=== PATIENT | male | born 1960 | race Caucasian/White ===

== ENCOUNTER 2018-10-09 09:54 | Inpatient (IN) | payer BC, OTHER ==
[~2018-10-09] VITALS: Ht 175.3 cm; Wt 58.1 kg
[2018-10-09] MEDS ORDERED: ONDANSETRON HCL INJ 2MG/ML 2ML 2 MG/ML VIAL IV PRN (10:15)
[2018-10-09] MEDS ORDERED: MORPHINE SULFATE 2 MG/ML SYR 1ML IV PRN (10:15)
[2018-10-09] MEDS ORDERED: COQ-10100 MG PO (10:17)
[2018-10-09] MEDS ORDERED: OMEPRAZOLE40 MG PO (10:17)
[2018-10-09] MEDS ORDERED: JARDIANCE PO (10:17)
[2018-10-09] MEDS ORDERED: LISINOPRIL10 MG PO (10:17)
[2018-10-09] MEDS ORDERED: JANUMET 50-1,01 EACH PO (10:17)
[2018-10-09] MEDS ORDERED: ZETIA10 MG PO (10:17)
[2018-10-09] MEDS ORDERED: RANITIDINE HCL150 MG PO (10:17)
[2018-10-09] MEDS ORDERED: PRAVASTATIN SOD40 MG PO (10:17)
[2018-10-09] MEDS ORDERED: BACTRIM DS TAB1 EACH PO (10:17)
[2018-10-09] MEDS ORDERED: FENOFIBRATE145 MG PO (10:17)
[2018-10-09] MEDS ORDERED: HYDROCHLOROTHIA25 MG PO (10:17)
[2018-10-09] MEDS ORDERED: METOPROLOL SUCC25 MG PO (10:17)
[2018-10-09] MEDS ORDERED: VASCEPA PO (10:17)
[2018-10-09] MEDS ORDERED: SODIUM CHLORIDE 0.9% 1000ML 1,000 ML IV STA (10:20)
[2018-10-09] MEDS ORDERED: ONDANSETRON HCL INJ 2MG/ML 2ML 2 MG/ML VIAL IV STA (10:20)
[2018-10-09] MEDS ORDERED: VANCOMYCIN 1GM/NS 250 ML 250 ML IV STA (10:20)
[2018-10-09] MEDS ORDERED: MORPHINE SULFATE INJ 4 MG/ML INJ 1ML IV STA (10:20)
[2018-10-09] MEDS ORDERED: PIPER-TAZ 3.375 GM 50 ML IV STA (10:20)
[2018-10-09] MEDS ORDERED: SODIUM CHLORIDE 0.9% 1000ML 1,000 ML ONE (10:24)
[2018-10-09 11:02] LABS: BASOPHILS % 0.4 % (0.0-1.0); EOSINOPHILS # (AUTO) 0.1 (0.0-0.4); EOSINOPHILS % 1.5 % (0.0-6.0); HEMATOCRIT 36.9 % (38.2-49.6); LYMPHOCYTES # (AUTO) 1.7 (1.0-3.2); LYMPHOCYTES % 22.4 % (18.0-39.1); MEAN CORPUSCULAR HEMOGLOBIN 26.9 pg (28-32); MEAN CORPUSCULAR HGB CONC 32.5 g/dL (31-35); MEAN CORPUSCULAR VOLUME 82.7 fL (81-99); MONOCYTES # (AUTO) 0.8 (0.2-0.8); MONOCYTES % 10.4 % (4.4-11.3); NEUTROPHILS # (AUTO) 4.9 (2.1-6.9); NEUTROPHILS % 65.2 % (38.7-80.0); PLATELET COUNT 274 x10e3/uL (140-360); RED BLOOD COUNT 4.46 x10e6/uL (4.3-5.7); RED CELL DISTRIBUTION WIDTH 13.7 % (11.7-14.4)
[2018-10-09 11:12] LABS: CLARITY,URINE HAZY (CLEAR); COLOR,URINE YELLOW (YELLOW)
[2018-10-09 11:13] LABS: ANION GAP 16.2 mmol/L (8-16); CALCIUM 9.7 mg/dL (8.4-10.2); CREATININE, SERUM 1.59 mg/dL (0.72-1.25); POTASSIUM 4.2 mmol/L (3.5-5.1)
[2018-10-09 11:13] LABS: BILIRUBIN,URINE NEGATIVE (NEGATIVE); KETONES,URINE NEGATIVE (NEGATIVE); LEUKOCYTE ESTERASE ,URINE NEGATIVE (NEGATIVE); NITRITE,URINE NEGATIVE (NEGATIVE); PROTEIN,URINE DIPSTICK NEGATIVE (NEGATIVE); URINE UROBILINOGEN 0.2 mg/dL (0.2 - 1)
[2018-10-09 11:27] LABS: EPITHELIAL CELLS,URINE RARE /LPF
[2018-10-09] MEDS ORDERED: PIPER-TAZ 3.375 GM 50 ML IV SCH (12:00)
--- NOTE | 2018-10-09 12:55 | NUR ---
Recvd patient via wheelchair from ER, AAOx3, Assisted him to bed, call light in reach, no resp distress, denies any pain or SOB, LEFT FACE IS SWOLLEN AND RED. Keep monitoring
[2018-10-09 13:10] VITALS: BP 137/84
[2018-10-09 13:11] VITALS: BP 110/54
[2018-10-09] MEDS ORDERED: CEFEPIME HCL 2 GM VIAL IV SCH (14:00)
[2018-10-09] MEDS: MORPHINE SULFATE INJ 4 MG/ML INJ 1ML IV PRN ×2 (14:20→20:08)
[2018-10-09] MEDS: SODIUM CHLORIDE 0.9% 1000ML 1,000 ML IV SCH ×2 (14:32→20:08)
[2018-10-09] MEDS: CEFEPIME 2 GM/NS 0.9% 100 ML 100 ML IV SCH ×2 (15:02→22:45)
[2018-10-09 15:42] VITALS: BP 136/69
--- NOTE | 2018-10-09 18:05 | NUR ---
patient up in bed, assisted him to restroom ,no distress noted
[2018-10-09 19:00] VITALS: BP 128/61
--- NOTE | 2018-10-09 20:08 | NUR ---
Patient complained of headache and facial pain. Morphine sulfate was administered as ordered, will reassess for pain. call light was within easy reach, instructed to call for assistance as needed.
[2018-10-09 20:19] VITALS: BP 128/61
[2018-10-09] MEDS: VANCOMYCIN 1GM/NS 250 ML 250 ML IV SCH (21:25)
[2018-10-10] VITALS (8 sets, daily range): BP systolic 101–171; BP diastolic 52–73
--- NOTE | 2018-10-10 00:30 | NUR ---
Patient resting comfortable in bed, no respiratory distress observed. Denies pain at this time, call light within easy reach, instructed to call for assistance.
[2018-10-10 05:24] LABS: BASOPHILS % 0.1 % (0.0-1.0); EOSINOPHILS # (AUTO) 0.1 (0.0-0.4); EOSINOPHILS % 0.9 % (0.0-6.0); HEMATOCRIT 36.3 % (38.2-49.6); HEMOGLOBIN 11.8 g/dL (14.0-18.0); LYMPHOCYTES # (AUTO) 1.8 (1.0-3.2); LYMPHOCYTES % 21.2 % (18.0-39.1); MEAN CORPUSCULAR HGB CONC 32.5 g/dL (31-35); MEAN CORPUSCULAR VOLUME 83.1 fL (81-99); MONOCYTES # (AUTO) 0.8 (0.2-0.8); MONOCYTES % 9.2 % (4.4-11.3); NEUTROPHILS # (AUTO) 5.9 (2.1-6.9); NEUTROPHILS % 68.4 % (38.7-80.0); PLATELET COUNT 276 x10e3/uL (140-360); RED BLOOD COUNT 4.37 x10e6/uL (4.3-5.7); RED CELL DISTRIBUTION WIDTH 13.7 % (11.7-14.4)
[2018-10-10] MEDS: CEFEPIME 2 GM/NS 0.9% 100 ML 100 ML IV SCH ×3 (05:46→22:21)
[2018-10-10] MEDS: SODIUM CHLORIDE 0.9% 1000ML 1,000 ML IV SCH ×3 (05:51→18:15)
--- NOTE | 2018-10-10 05:51 | NUR ---
Patient complained of pain but said he did not want pain medication at this time. Patient was notified to call the nurse when he wanted pain medication
[2018-10-10] MEDS: MORPHINE SULFATE INJ 4 MG/ML INJ 1ML IV PRN ×3 (07:00→17:57)
--- NOTE | 2018-10-10 07:20 | NUR ---
patient resting in bed, denies any SOB, Pain 5/10 on left face, already medicated with pain medicine, call light in reach, no distress noted
[2018-10-10 08:31] LABS: CALCIUM 9.2 mg/dL (8.4-10.2); CREATININE, SERUM 1.33 mg/dL (0.72-1.25)
[2018-10-10] MEDS: VANCOMYCIN 1GM/NS 250 ML 250 ML IV SCH ×2 (08:42→20:40)
[2018-10-10 08:52] LABS: FREE T4 (FREE THYROXINE) 0.99 ng/dL (0.9-1.8); THYROID STIMULATING HORMONE 0.547 uIU/mL (0.350-4.940)
[2018-10-10] MEDS ORDERED: FAMOTIDINE 20 MG TAB PO SCH (09:00)
[2018-10-10] MEDS: JARDIANCE 10 MG PO SCH (09:00)
--- NOTE | 2018-10-10 12:14 | Diagnostic Imaging Report ---
Ultrasound of left face History:Pain, swelling, redness for 2 weeks Comparison: CT face performed at 1142 hours Findings: Subcutaneous fluid collection containing isoechoic debris collection in the superior aspect of the left cheek in the area of swelling abutting a facial muscle. This measures 2.2 x 2.2 x 1.7 cm (AP, transverse, craniocaudal). There is surrounding cellulitis. No increased vascularity on color Doppler interrogation. No evidence of foreign body. IMPRESSION: Left facial abscess as described above. Thank you for your referral. Signed by: Dr. Pam Mary MD on 10/10/2018 12:11 PM
--- NOTE | 2018-10-10 12:17 | Diagnostic Imaging Report ---
EXAMINATION: CT of the face HISTORY: Left facial masses/cellulitis for last week. Hypertension, diabetes, hyperlipidemia COMPARISON: None available TECHNIQUE: Multidetector helical axial images were acquired through the face with contrast and were reconstructed in bone and soft tissue algorithms. Images were viewed in multiplanar format. Intravenous Contrast: 100 ml Isovue-370. Dose modulation, iterative reconstruction, and/or weight based adjustment of the mA/kV was utilized to reduce the radiation dose to as low as reasonably achievable. FINDINGS: Bones/teeth: Status post primary recent dental extraction of the right mandibular first molar and left mandibular first and second molars. Heterogeneous density possibly packing material gauze/anterior is seen in the left mandible without extraction site, seen in the irregularity of the lingual and buccal cortices of the body of the mandible may be related to recent dental extraction, however superimposed osseous infection cannot be excluded. Minimal periapical lucency around the last left maxillary molar (which is partially unerupted) without definite osseous erosion or immediately adjacent soft tissue abnormalities. Facial soft tissues: Approximately 3 x 1.8 cm peripherally enhancing fluid collection is seen in the deep left facial soft tissues, within the left business development representative space, immediately anterior to the left masseter muscle, with prominent surrounding subcutaneous fat stranding/swelling Paranasal sinuses and drainage pathways: Small retention cyst in the maxillary sinuses. The ostiomeatal units, fronto-nasal and spheno-ethmoidal recesses are clear. Orbits contents: Unremarkable. Nasal septum: Midline. Anatomic variations: No significant anatomic variations. Dentition: As above IMPRESSION: 1. Left deep facial/business development representative space abscess (approximately 3 x 1.8 cm) with prominent surrounding cellulitis. 2. Status post likely recent dental extractions in both sides of the mandible with irregularity of the left body of the mandible as detailed above. Signed by: Dr. Rossana Weaver M.D. on 10/10/2018 12:14 PM
[2018-10-10] MEDS: LISINOPRIL 20 MG TAB PO SCH (12:30)
[2018-10-10] MEDS: FENOFIBRATE 145 MG TAB PO SCH (12:30)
[2018-10-10] MEDS: EZETIMIBE 10 MG TAB PO SCH (12:30)
[2018-10-10] MEDS: HYDROCHLOROTHIAZIDE 25 MG TAB PO SCH (12:30)
[2018-10-10] MEDS: METOPROLOL SUCCINATE 25 MG TAB XL PO SCH (12:30)
--- NOTE | 2018-10-10 15:42 | Consultation ---
DATE OF CONSULTATION: REASON FOR CONSULTATION: Abscess on the face. HISTORY OF PRESENT ILLNESS: This patient is a very pleasant 57-year-old white male, history of diabetes mellitus for years, obesity, his BMI was 33.8. The patient was found to have redness and swelling of left side of his face and his cheek. He went to see his physician, given a course of clindamycin for 7 days without improvement. Took a course of Bactrim for a few days without improvement, actually it started to get worse. He had a CAT scan as an outpatient and it showed there was no abscess. The patient came to the hospital. CAT scan at this time did show an abscess. He is being admitted and I was asked to see him. PAST MEDICAL HISTORY: Significant for diabetes mellitus. PAST SURGICAL HISTORY: Denies. ALLERGIES: PENICILLIN. SOCIAL HISTORY: There is no smoking, drug abuse, or alcohol abuse. FAMILY HISTORY: Otherwise unremarkable. REVIEW OF SYSTEMS HEENT: Negative. PULMONARY: Negative. CARDIAC: Negative. : Negative. SKIN: There is no other rash. Otherwise, all within normal limits. PHYSICAL EXAMINATION GENERAL: He is currently alert, oriented, does not seem to be in acute distress. VITALS: Stable. Currently afebrile. HEENT: Normocephalic, does not appear icteric. NECK: Supple. No JVD, no lymphadenopathy, no thyromegaly. CHEST: Clear bilateral. HEART: S1, S2. No S3, S4, or murmur. ABDOMEN: Soft. Positive bowel sounds. No tenderness. EXTREMITIES: No edema. SKIN: He did have a hard nodule, indurated, swelling and redness on his left cheek. IMPRESSION: Abscess of the face, failed oral antibiotic. PLAN: I think he needs incision and drainage. Surgery has been consulted. The ENT has been consulted. I have also recommended to send culture and sensitivity. Agree with vancomycin at 50 mg per kg q.12 hours. We will follow trough and he is also on cefepime. I will follow vancomycin trough. Recheck CBC. Recheck chem panel. We will follow with you. Job#: [id number] LPA
[2018-10-10] MEDS ORDERED: ASPIR 8181 MG PO (15:45)
[2018-10-10] MEDS: FAMOTIDINE 20 MG TAB PO SCH ×2 (16:30→17:57)
[2018-10-10] MEDS ORDERED: DEXTROSE 50% SYRINGE 50 ML IV PRN (16:45)
[2018-10-10] MEDS ORDERED: SODIUM CHLORIDE 0.9% 50ML 50 ML ONE (18:29)
[2018-10-10] MEDS ORDERED: IOPAMIDOL 370 MG/ML 200 ML INFUS..BTL INJ ONE (18:29)
[2018-10-10] MEDS: PRAVASTATIN 20 MG TAB PO SCH (20:40)
[2018-10-10] MEDS: INSULIN LISPRO 100 UNIT/1 ML 3ML VIAL SQ SCH (20:41)
[2018-10-11] VITALS (7 sets, daily range): BP systolic 110–141; BP diastolic 55–74
--- NOTE | 2018-10-11 00:16 | NUR ---
PATIENT IS AWARE OF NPO DIET AFTER MIDNIGHT.
--- NOTE | 2018-10-11 00:32 | Consultation ---
DATE OF CONSULTATION: October 10, 2018 HOSPITAL CONSULTATION HISTORY OF PRESENT ILLNESS: I was kindly asked to see this 57-year-old man for evaluation of facial abscess. Patient presented with a 1-week history of progressive pain and swelling after dental extraction and subsequent CT scan demonstrated a 3 cm x 1.8 cm peripherally enhancing fluid collection in the left deep facial soft tissues within the left masseter space. Dr. Juárez was also consulted and had seen and evaluated the patient and will proceed with incision and drainage. ASSESSMENT: Left masseter space abscess. PLAN: I will defer to the surgeon who has already seen and evaluated the patient and will be available for backup if needed. Job#: [id number] SHARMAINE
[2018-10-11] MEDS: SODIUM CHLORIDE 0.9% 1000ML 1,000 ML IV SCH ×2 (02:15→11:46)
[2018-10-11 03:06] LABS: BASOPHILS % 0.2 % (0.0-1.0); EOSINOPHILS # (AUTO) 0.1 (0.0-0.4); EOSINOPHILS % 1.6 % (0.0-6.0); HEMATOCRIT 32.7 % (38.2-49.6); HEMOGLOBIN 11.5 g/dL (14.0-18.0); LYMPHOCYTES % 23.4 % (18.0-39.1); MEAN CORPUSCULAR HEMOGLOBIN 28.5 pg (28-32); MEAN CORPUSCULAR HGB CONC 35.2 g/dL (31-35); MEAN CORPUSCULAR VOLUME 81.1 fL (81-99); MONOCYTES # (AUTO) 0.9 (0.2-0.8); MONOCYTES % 9.8 % (4.4-11.3); NEUTROPHILS # (AUTO) 5.6 (2.1-6.9); NEUTROPHILS % 64.7 % (38.7-80.0); PLATELET COUNT 266 x10e3/uL (140-360); RED BLOOD COUNT 4.03 x10e6/uL (4.3-5.7); RED CELL DISTRIBUTION WIDTH 13.7 % (11.7-14.4)
[2018-10-11 03:24] LABS: ANION GAP 16.2 mmol/L (8-16); BLOOD UREA NITROGEN 14 mg/dL (7-26); BUN/CREATININE RATIO 13 (6-25); CALCIUM 9.2 mg/dL (8.4-10.2); CARBON DIOXIDE 21 mmol/L (22-29); CHLORIDE 104 mmol/L (98-107); CREATININE, SERUM 1.09 mg/dL (0.72-1.25); EST GLOMERULAR FILTRATION RATE > 60 ML/MIN (60-); GLUCOSE 98 mg/dL (74-118); MAGNESIUM 2.1 MG/DL (1.3-2.1); POTASSIUM 4.2 mmol/L (3.5-5.1); SODIUM 137 mmol/L (136-145)
--- NOTE | 2018-10-11 04:00 | NUR ---
FACE AND NECK CLEANSE WITH HIBICLENS.
[2018-10-11] MEDS: MORPHINE SULFATE INJ 4 MG/ML INJ 1ML IV PRN ×3 (05:04→20:41)
[2018-10-11] MEDS: CEFEPIME 2 GM/NS 0.9% 100 ML 100 ML IV SCH ×3 (05:40→23:10)
[2018-10-11] MEDS: VANCOMYCIN 1GM/NS 250 ML 250 ML IV SCH ×3 (07:04→21:57)
[2018-10-11] MEDS: INSULIN LISPRO 100 UNIT/1 ML 3ML VIAL SQ SCH ×4 (07:30→20:41)
--- NOTE | 2018-10-11 07:50 | NUR ---
Consent completed and signed for procedure this morning. All questions answered by patient. Checklist completed.
--- NOTE | 2018-10-11 08:18 | NUR ---
Patient off unit to the OR for procedure.
[2018-10-11] MEDS ORDERED: BACITRACIN 50,000 UNIT VIAL ONE (08:39)
[2018-10-11] MEDS: LISINOPRIL 20 MG TAB PO SCH (09:00)
[2018-10-11] MEDS: METOPROLOL SUCCINATE 25 MG TAB XL PO SCH (09:00)
[2018-10-11] MEDS ORDERED: HYDROCODONE/APAP 5MG-325MG TAB PO PRN (09:15)
[2018-10-11] MEDS ORDERED: ACETAMINOPHEN 325 MG TAB PO PRN (09:15)
[2018-10-11] MEDS ORDERED: ONDANSETRON HCL INJ 2MG/ML 2ML 2 MG/ML VIAL IV PRN (09:15)
[2018-10-11] MEDS ORDERED: FENTANYL CITRATE/PF 100MCG/2 ML INJ ONE ×2 (09:34→18:49)
[2018-10-11] MEDS ORDERED: HYDROMORPHONE 2MG/ML 2 MG/ML ML ONE (09:50)
--- NOTE | 2018-10-11 10:03 | Operative Report ---
DATE OF PROCEDURE: October 11, 2018 PREOPERATIVE DIAGNOSIS: Abscess in the left face. POSTOPERATIVE DIAGNOSIS: Deep abscess to the left face. PROCEDURE: Incision and drainage of deep abscess, left face. BUCK SWAMPER: None. ANESTHESIA: General. INDICATIONS AND FINDINGS: Patient is a 57-year-old male, who presented with complaints of pain and swelling of left side of his face. It has been gradually increasing over 2 weeks. At surgery, there was deep abscess beneath the facia of the left face extending into the muscle containing approximately 7 mL of purulent fluid. TECHNIQUE: After adequate general anesthesia, patient in supine position, the left side of the face was prepped and draped in sterile fashion with ChloraPrep solution. Initially the area of swelling was aspirated and purulent fluid removed, about 5 mL was removed. This was submitted for culture and sensitivity. Incision was then made to the area where the aspiration was done, carried down through the subcutaneous tissue down to the fascia and once the fascia was opened, abscess cavity was entered, additional purulent fluid was drained. There was no necrotic tissue. The abscess cavity irrigated with saline. All loculations were broken up. Hemostasis achieved with electrocautery. The abscess cavity was then packed open with 0.25-inch iodoform gauze and sterile dressing applied. The patient tolerated the procedure well. Estimated blood loss was 5 mL. There were no complications. All counts were correct. The patient was taken to the recovery room in satisfactory condition. Job#: [id number] ELO cc:DR. BOBBY RYAN
[2018-10-11] MEDS ORDERED: MORPHINE SULFATE INJ 4 MG/ML INJ 1ML ONE (10:05)
--- NOTE | 2018-10-11 10:20 | NUR ---
Patient returned from the OR at this time. Patient is arousable. Patient states pain is tolerable. Call celestin within reach.
[2018-10-11] MEDS: JARDIANCE 10 MG PO SCH (11:45)
[2018-10-11] MEDS: HYDROCHLOROTHIAZIDE 25 MG TAB PO SCH (11:45)
[2018-10-11] MEDS: FAMOTIDINE 20 MG TAB PO SCH ×2 (11:45→16:57)
[2018-10-11] MEDS: FENOFIBRATE 145 MG TAB PO SCH (11:46)
[2018-10-11] MEDS: EZETIMIBE 10 MG TAB PO SCH (11:46)
--- NOTE | 2018-10-11 12:56 | NUR ---
SOCIAL WORK INITIAL ASSESSMENT Life Sciences Director to bedside to discuss plan of care with patient/family. CM/SW role and care transitions discussed. Anticipated discharge plan discussed along with duration of care. CM/SW discussed patients right to make decisions in care. CM/SW work hours given. Patient lives: with Admit/Transfer: Admit POA/Emergency contact: Adele Bush Current/Previous Home Health: N/A PCP/Follow-up Care: Dr. Paredes Current/Previous DME: N/A Other Services: Employment Status: works for [employer] Areas of Concerns: Referral Needs: Education Needs: IMM/NUNEZ given and signed (if applicable): Goal for discharge: CM/SW left business card at the bedside with contact information. Name and number was also written on the patients whiteboard. Patient verbalized understanding of discussion. CM will follow-up with ongoing discharge and transition of care needs.
--- NOTE | 2018-10-11 14:33 | Progress Note ---
DATE: PROGRESS NOTE SUBJECTIVE: Mr. Bush is status post I and D. He is doing better. No new complaints. PHYSICAL EXAMINATION GENERAL: He is currently alert, oriented, does not seem to be in any acute distress. VITALS: Stable. Afebrile. HEENT: . The dressing is little bit bloody. NECK: Supple. No JVD, no lymphadenopathy, no thyromegaly. CHEST: Clear bilateral. IMPRESSION: Abscess of the face status post incision and drainage. Continue current choice of IV antibiotic in the patient who failed oral antibiotic. Await culture and sensitivity. Local care per surgery will follow. Job#: [id number] ROSALINDA
[2018-10-11] MEDS ORDERED: ONDANSETRON HCL INJ 2MG/ML 2ML 2 MG/ML VIAL ONE (18:14)
[2018-10-11] MEDS ORDERED: SEVOFLURANE INHAL SOLN 250 ML PEN BTL ONE (18:14)
[2018-10-11] MEDS ORDERED: DEXAMETHASONE SOD PHOS INJ 4 MG/ML VIAL ONE (18:14)
[2018-10-11] MEDS ORDERED: LIDOCAINE HCL 2% LOCAL INJ 5 ML SDV VIAL INJ ONE (18:14)
[2018-10-11] MEDS ORDERED: PROPOFOL IV EMULSION 10 MG/ML 20 ML VIAL ONE (18:14)
[2018-10-11] MEDS ORDERED: MIDAZOLAM HCL 2 MG/2 ML VIAL ONE (18:49)
[2018-10-11] MEDS: PRAVASTATIN 20 MG TAB PO SCH (20:40)
--- NOTE | 2018-10-11 22:00 | NUR ---
DRESSING TO LEFT FACE CHANGED.
--- NOTE | 2018-10-11 22:00 | NUR ---
NO BLEEDING OR DISCHARGE NOTED FROM THE SURGICAL SITE. PATIENT WAS MEDICATED WITH PAIN MEDICATION BEFORE DRESSING CHANGED.
[2018-10-12] VITALS (8 sets, daily range): BP systolic 105–144; BP diastolic 57–80
[2018-10-12 03:06] LABS: BASOPHILS % 0.2 % (0.0-1.0); EOSINOPHILS # (AUTO) 0.1 (0.0-0.4); EOSINOPHILS % 0.8 % (0.0-6.0); HEMATOCRIT 30.9 % (38.2-49.6); HEMOGLOBIN 10.8 g/dL (14.0-18.0); LYMPHOCYTES # (AUTO) 2.2 (1.0-3.2); LYMPHOCYTES % 24.3 % (18.0-39.1); MEAN CORPUSCULAR HEMOGLOBIN 28.4 pg (28-32); MEAN CORPUSCULAR VOLUME 81.3 fL (81-99); MONOCYTES # (AUTO) 0.8 (0.2-0.8); MONOCYTES % 8.3 % (4.4-11.3); NEUTROPHILS % 66.1 % (38.7-80.0); PLATELET COUNT 269 x10e3/uL (140-360); RED CELL DISTRIBUTION WIDTH 13.4 % (11.7-14.4)
[2018-10-12 03:20] LABS: ANION GAP 15.9 mmol/L (8-16); BLOOD UREA NITROGEN 19 mg/dL (7-26); BUN/CREATININE RATIO 17 (6-25); CALCIUM 9.1 mg/dL (8.4-10.2); CARBON DIOXIDE 21 mmol/L (22-29); CHLORIDE 101 mmol/L (98-107); CREATININE, SERUM 1.13 mg/dL (0.72-1.25); EST GLOMERULAR FILTRATION RATE > 60 ML/MIN (60-); GLUCOSE 234 mg/dL (74-118); MAGNESIUM 2.1 MG/DL (1.3-2.1); POTASSIUM 3.9 mmol/L (3.5-5.1); SODIUM 134 mmol/L (136-145)
[2018-10-12] MEDS: CEFEPIME 2 GM/NS 0.9% 100 ML 100 ML IV SCH ×3 (06:16→22:04)
--- NOTE | 2018-10-12 07:10 | NUR ---
received pt lying in bed with eyes closed, resp even and unlabored. call light within reach.
[2018-10-12] MEDS: INSULIN LISPRO 100 UNIT/1 ML 3ML VIAL SQ SCH ×4 (07:30→20:31)
--- NOTE | 2018-10-12 08:12 | Consultation ---
DATE OF CONSULTATION: October 09, 2018 REFERRING PHYSICIAN: Dr. Braun. HISTORY OF PRESENT ILLNESS: Patient is a 57-year-old male who presented with complaints of pain and swelling on the left side of his face and left cheek area. His symptoms started about 2 weeks ago where he seen several doctors, had been on p.o. antibiotics, but the swelling has increased in size so a CAT scan of the face was done 2 days ago, did not reveal any abscess also saw Ear, Nose, and Throat doctor where the air was aspirated and no purulent fluid was obtained. He came to the emergency room yesterday. He was admitted to the hospital and started on IV antibiotics as there has not been much improvement since he was admitted. He did not had any fever. PAST MEDICAL HISTORY: Significant for hyperlipidemia for which he takes medications and diabetes. ALLERGIES: PENICILLIN. MEDICATIONS: At home Zetia, fenofibrate, hydrochlorothiazide, metoprolol, lisinopril, omeprazole, pravastatin, ranitidine, Janumet, Bactrim, CoQ10, Jardiance, and Vascepa. FAMILY HISTORY: Noncontributory. SOCIAL HISTORY: The patient does not smoke cigarettes or drink alcohol. REVIEW OF SYSTEMS: As stated above, otherwise was negative. PHYSICAL EXAMINATION GENERAL: The patient is awake and alert, in no distress. VITAL SIGNS: Normal. He is afebrile. HEENT: Reveals erythema and induration over the left zygomatic area and this bulges into the oral cavity. There is no necrotic tissue. There is slight fluctuance. Pupils equal, round, and reactive to light. NECK: No masses. LUNGS: Equal breath sounds are clear bilaterally. CARDIAC: Regular rate and rhythm with no murmur. ABDOMEN: Soft. No tenderness or mass. EXTREMITIES: No edema. NEUROLOGIC: Grossly intact. LABORATORY DATA: White blood count was 7.5 on admission, repeat 8.6, hemoglobin and hematocrit essentially normal. Chemistries revealed mildly elevated creatinine 1.3 with glucose today is normal. ASSESSMENT: A 57-year-old male with cellulitis on the left side of the face, but findings are also worrisome for an abscess. PLAN: Evaluate with an ultrasound of the face, also plan to keep him n.p.o. after midnight as likely there is an abscess that will require drainage. This was explained to the patient. Thank you for asking me to see Mr. Bush. Job#: [id number] CHEL
[2018-10-12] MEDS: METOPROLOL SUCCINATE 25 MG TAB XL PO SCH (09:00)
[2018-10-12] MEDS: VANCOMYCIN 1GM/NS 250 ML 250 ML IV SCH ×2 (09:26→20:31)
[2018-10-12] MEDS: JARDIANCE 10 MG PO SCH (09:26)
[2018-10-12] MEDS: HYDROCHLOROTHIAZIDE 25 MG TAB PO SCH (09:26)
[2018-10-12] MEDS: FAMOTIDINE 20 MG TAB PO SCH ×2 (09:26→17:27)
[2018-10-12] MEDS: EZETIMIBE 10 MG TAB PO SCH (09:27)
[2018-10-12] MEDS: LISINOPRIL 20 MG TAB PO SCH (09:27)
[2018-10-12] MEDS: FENOFIBRATE 145 MG TAB PO SCH (09:27)
[2018-10-12] MEDS: SODIUM CHLORIDE 0.9% 1000ML 1,000 ML IV SCH (11:07)
[2018-10-12] MEDS: ACETAMINOPHEN 325 MG TAB PO PRN ×2 (11:19→20:33)
--- NOTE | 2018-10-12 11:28 | NUR ---
Fenofibrate med verified with pharmacy. administered fenofibrate 145mg PO daily.
[2018-10-12] MEDS: SITAGLIPTIN 100 MG TAB PO SCH (12:00)
[2018-10-12] MEDS: METFORMIN HCL 500 MG TAB PO SCH ×2 (12:00→17:27)
[2018-10-12] MEDS ORDERED: SIMVASTATIN 20 MG TAB PO SCH (21:00)
[2018-10-13] VITALS: BP 123/60
[2018-10-13] MEDS: DIPHENHYDRAMINE HCL INJ 50 MG/ML VIAL IV PRN ×2 (00:31→05:00)
--- NOTE | 2018-10-13 00:37 | NUR ---
pt c/o of right side of lip and right lower cheek swelling and tingling, lip slightly swollen, resp even and unlabored, no s/s resp distress, MD called and orders received, BP 151/79, HR 57, O2 sat on room air 96, resp 20, pt appears anxious stated "this happened to me when I was 16"
[2018-10-13 04:00] VITALS: BP 102/58
[2018-10-13] MEDS: CEFEPIME 2 GM/NS 0.9% 100 ML 100 ML IV SCH ×3 (05:49→23:48)
[2018-10-13 06:25] LABS: BASOPHILS % 0.5 % (0.0-1.0); EOSINOPHILS # (AUTO) 0.2 (0.0-0.4); EOSINOPHILS % 3.1 % (0.0-6.0); HEMATOCRIT 36.5 % (38.2-49.6); HEMOGLOBIN 11.8 g/dL (14.0-18.0); LYMPHOCYTES # (AUTO) 2.5 (1.0-3.2); LYMPHOCYTES % 38.8 % (18.0-39.1); MEAN CORPUSCULAR HEMOGLOBIN 26.9 pg (28-32); MEAN CORPUSCULAR HGB CONC 32.3 g/dL (31-35); MEAN CORPUSCULAR VOLUME 83.1 fL (81-99); MONOCYTES # (AUTO) 0.6 (0.2-0.8); MONOCYTES % 8.6 % (4.4-11.3); NEUTROPHILS # (AUTO) 3.1 (2.1-6.9); NEUTROPHILS % 48.8 % (38.7-80.0); PLATELET COUNT 319 x10e3/uL (140-360); RED BLOOD COUNT 4.39 x10e6/uL (4.3-5.7); RED CELL DISTRIBUTION WIDTH 13.5 % (11.7-14.4)
[2018-10-13 06:39] LABS: ANION GAP 13.9 mmol/L (8-16); BLOOD UREA NITROGEN 16 mg/dL (7-26); BUN/CREATININE RATIO 14 (6-25); CALCIUM 9.6 mg/dL (8.4-10.2); CARBON DIOXIDE 27 mmol/L (22-29); CHLORIDE 103 mmol/L (98-107); CREATININE, SERUM 1.11 mg/dL (0.72-1.25); EST GLOMERULAR FILTRATION RATE > 60 ML/MIN (60-); GLUCOSE 107 mg/dL (74-118); POTASSIUM 3.9 mmol/L (3.5-5.1); SODIUM 140 mmol/L (136-145)
--- NOTE | 2018-10-13 07:10 | NUR ---
pt asleep resp even and unlabored at this time, no distress noted, pt lying on his right side, easily aroused, dressing to cheek intact, call light in reach.
[2018-10-13] MEDS: INSULIN LISPRO 100 UNIT/1 ML 3ML VIAL SQ SCH ×4 (07:30→21:00)
[2018-10-13 07:40] VITALS: BP 109/56
[2018-10-13] MEDS: HYDROCHLOROTHIAZIDE 25 MG TAB PO SCH (08:29)
[2018-10-13] MEDS: METFORMIN HCL 500 MG TAB PO SCH ×2 (08:29→16:59)
[2018-10-13] MEDS: FAMOTIDINE 20 MG TAB PO SCH ×2 (08:29→16:59)
[2018-10-13] MEDS: LISINOPRIL 20 MG TAB PO SCH (08:30)
[2018-10-13] MEDS: JARDIANCE 10 MG PO SCH (08:30)
[2018-10-13] MEDS: SITAGLIPTIN 100 MG TAB PO SCH (08:30)
[2018-10-13] MEDS: FENOFIBRATE 145 MG TAB PO SCH (08:30)
[2018-10-13] MEDS: VANCOMYCIN 1GM/NS 250 ML 250 ML IV SCH ×2 (09:00→21:31)
--- NOTE | 2018-10-13 09:30 | NUR ---
pt dressing to face changed. pt tolerated well.
[2018-10-13] MEDS: SODIUM CHLORIDE 0.9% 1000ML 1,000 ML IV SCH (13:19)
[2018-10-13 13:36] VITALS: BP 123/60
[2018-10-13 16:33] VITALS: BP 119/64
--- NOTE | 2018-10-13 19:16 | NUR ---
report given to oncoming nurse for continued care.
[2018-10-13 20:00] VITALS: BP 159/77
[2018-10-13] MEDS ORDERED: EZETIMIBE 10 MG TAB PO SCH (21:00)
[2018-10-13] MEDS ORDERED: LOPERAMIDE HCL 2 MG CAP PO PRN (23:00)
[2018-10-14] VITALS: BP 159/77
[2018-10-14] MEDS: SODIUM CHLORIDE 0.9% 1000ML 1,000 ML IV SCH (03:36)
[2018-10-14 04:00] VITALS: BP 168/79
[2018-10-14 04:59] LABS: BASOPHILS % 0.3 % (0.0-1.0); EOSINOPHILS # (AUTO) 0.2 (0.0-0.4); EOSINOPHILS % 2.9 % (0.0-6.0); HEMATOCRIT 37.5 % (38.2-49.6); HEMOGLOBIN 11.8 g/dL (14.0-18.0); LYMPHOCYTES # (AUTO) 2.5 (1.0-3.2); LYMPHOCYTES % 40.7 % (18.0-39.1); MEAN CORPUSCULAR HGB CONC 31.5 g/dL (31-35); MEAN CORPUSCULAR VOLUME 82.8 fL (81-99); MONOCYTES # (AUTO) 0.5 (0.2-0.8); MONOCYTES % 8.7 % (4.4-11.3); NEUTROPHILS # (AUTO) 2.9 (2.1-6.9); NEUTROPHILS % 47.2 % (38.7-80.0); PLATELET COUNT 339 x10e3/uL (140-360); RED BLOOD COUNT 4.53 x10e6/uL (4.3-5.7); RED CELL DISTRIBUTION WIDTH 13.4 % (11.7-14.4)
[2018-10-14 05:21] LABS: ANION GAP 14.8 mmol/L (8-16); BLOOD UREA NITROGEN 14 mg/dL (7-26); BUN/CREATININE RATIO 13 (6-25); CARBON DIOXIDE 25 mmol/L (22-29); CHLORIDE 102 mmol/L (98-107); CREATININE, SERUM 1.04 mg/dL (0.72-1.25); EST GLOMERULAR FILTRATION RATE > 60 ML/MIN (60-); GLUCOSE 107 mg/dL (74-118); POTASSIUM 3.8 mmol/L (3.5-5.1); SODIUM 138 mmol/L (136-145)
[2018-10-14] MEDS: CEFEPIME 2 GM/NS 0.9% 100 ML 100 ML IV SCH ×2 (05:41→14:16)
[2018-10-14] MEDS: INSULIN LISPRO 100 UNIT/1 ML 3ML VIAL SQ SCH ×3 (07:30→16:30)
[2018-10-14 07:59] VITALS: BP 146/87
[2018-10-14] MEDS: SITAGLIPTIN 100 MG TAB PO SCH (09:00)
[2018-10-14 09:36] VITALS: BP 146/87
[2018-10-14] MEDS: METFORMIN HCL 500 MG TAB PO SCH ×2 (09:36→16:43)
[2018-10-14] MEDS: JARDIANCE 10 MG PO SCH (09:36)
[2018-10-14] MEDS: HYDROCHLOROTHIAZIDE 25 MG TAB PO SCH (09:36)
[2018-10-14] MEDS: FAMOTIDINE 20 MG TAB PO SCH ×2 (09:36→16:43)
[2018-10-14] MEDS: VANCOMYCIN 1GM/NS 250 ML 250 ML IV SCH (09:37)
[2018-10-14] MEDS: FENOFIBRATE 145 MG TAB PO SCH (09:37)
[2018-10-14] MEDS: LISINOPRIL 20 MG TAB PO SCH (09:37)
[2018-10-14] MEDS ORDERED: HYDROCODONE/APAP 5MG-325MG TAB PO PRN (12:00)
[2018-10-14 12:02] VITALS: BP 122/77
[2018-10-14 15:57] VITALS: BP 134/63
[2018-10-14] MEDS ORDERED: DOXYCYCLINE HY100 MG PO (18:19)
[2018-10-14] MEDS ORDERED: CIPRO500 MG PO (18:19)
--- NOTE | 2018-10-15 06:00 | Discharge Summary ---
PRIMARY CARE PROVIDER: Dr. Bobby Paredes ADMITTING DIAGNOSES: 1. Left facial abscess, cellulitis. 2. Hypertension. 3. Type 2 diabetes. 4. Obesity. 5. Acute kidney injury. DISCHARGE DIAGNOSES: 1. Left facial abscess, cellulitis. 2. Hypertension. 3. Type 2 diabetes. 4. Obesity. 5. Acute kidney injury. 6. Status post incision and drainage of the left facial abscess. BRIEF HISTORY: Mr. Bush is a 57-year-old gentleman with a history of hypertension and diabetes, presents with swelling and erythema of the left cheek that has failed outpatient antibiotic therapy. HOSPITAL COURSE: The patient was admitted to the floor, started on intravenous vancomycin and cefepime. He had initially been treated with clindamycin as an outpatient, this is what he failed. He responded well to the vancomycin and Zosyn. He was seen by surgery who did an I and D of a deep abscess near the zygomatic arch and masseter. It was packed. The surgeon removed the packing on the second day and told him he did not need to re-pack it, that it would close on its own. He has been seen by infectious disease, who recommended Cipro and doxycycline p.o. for discharge. His blood cultures and wound cultures had no growth. He can resume a diabetic diet. He will resume all of his home meds. Activity as tolerated. He was instructed not to submerge the wound, but he can shower, not to shave until it is completely closed, and instructed to follow up with his PCP within 2 weeks. Again, he will be going home on Cipro and doxycycline. BOBBY JOYNER MD Job#: [id number]
== END 2018-10-14 18:45 | disposition home or self-care (01) | DRG 580 ==
LOC: ER 09:54 → ERHOLD 11:52 → IMCU 12:13 → OBSVTOIN 10-10 09:01 → MED/SURG2 10-10 15:08
PROVIDERS: ADMIT Internal Medicine; ATTEND Internal Medicine
PROC: 0K9 Muscles, Drainage (ICD-10-PCS; principal; 2018-10-11 08:30)
DX: L02.01 Cutaneous abscess of face (principal); L03.211 Cellulitis of face; N17.9 Acute kidney failure, unspecified; I10 Essential (primary) hypertension; E11.9 Type 2 diabetes mellitus without complications; E66.9 Obesity, unspecified; Z68.33 Body mass index [BMI] 33.0-33.9, adult; E78.5 Hyperlipidemia, unspecified; G47.33 Obstructive sleep apnea (adult) (pediatric); Z79.84 Long term (current) use of oral hypoglycemic drugs; Z79.82 Long term (current) use of aspirin; Z88.0 Allergy status to penicillin
CPT/HCPCS: 36415; 70487; 76536; 80048; 80202; 81001; 82948; 83036; 83735; 84439; 84443; 85025; 87040; 87071; 87075; 87205; 96367; 96376; 99284; G0378; J1100; J1200; J2001; J2250; J2270; J2405; J3370; J7030; Q9967